=== PATIENT | female | born 1995 | race Caucasian/White ===

== ENCOUNTER 2018-09-23 22:55 | Outpatient (CLI) | payer MEDICAID ==
[2018-09-23 23:54] LABS: ADD UMIC YES; UR ASCORBIC ACID NEGATIVE (NEGATIVE); UR BACTERIA MODERATE /HPF (NONE SEEN); UR BILIRUBIN (Dip) NEGATIVE (NEGATIVE); UR BLOOD (Dip) NEGATIVE (NEGATIVE); UR CLARITY CLOUDY (CLEAR); UR COLOR STRAW (YELLOW); UR GLUCOSE (Dip) NEGATIVE (NEGATIVE); UR KETONES (Dip) NEGATIVE (NEGATIVE); UR LEUKOCYTE ESTERASE (Dip) 3+ Leu/ul (NEGATIVE); UR NITRITE (Dip) NEGATIVE (NEGATIVE); UR RBC 4 /HPF (0-5); UR SPECIFIC GRAVITY (Dip) 1.004 (1.003-1.030); UR SQUAMOUS EPITHELIAL CELL MODERATE /HPF (FEW); UR TOTAL PROTEIN (Dip) NEGATIVE (NEGATIVE); UR UROBILINOGEN (Dip) NEGATIVE (NEGATIVE); UR WBC 56 /HPF (0-5)
[2018-09-24] MEDS ORDERED: CEFTRIAXONE 1 GM INJ IM (02:00)
[2018-09-24] MEDS: SOD CHLORIDE 0.9% 1,000 ML IV (02:28)
[2018-09-24] MEDS: CEFTRIAXONE 1 GM/50 ML (PMX) 50 ML IVPB (02:35)
== END 2018-09-24 03:15 | disposition home or self-care (01) ==
LOC: OBT 22:55 → L-D 22:57 → OBT 09-24 03:15
DX: O62.9 Abnormality of forces of labor, unspecified (principal); Z3A.33 33 weeks gestation of pregnancy
CPT/HCPCS: 36415; 76817; 76818; 81001; 82731; 87086; 96365

== ENCOUNTER 2018-10-20 16:36 | Inpatient (IN) | payer MEDICAID ==
[2018-10-20] MEDS ORDERED: MISOPROSTOL 200 MCG TAB PR (18:30)
[2018-10-20] MEDS ORDERED: OXYCODONE/ASPIRIN (4.88/325) TAB PO (18:30)
[2018-10-20] MEDS ORDERED: LIDOCAINE 1% (MPF) 30 ML INJ INJ (18:30)
[2018-10-20] MEDS ORDERED: CARBOPROST 250 MCG INJ IM (18:30)
[2018-10-20] MEDS ORDERED: LABETALOL HCL 20MG INJ IV (18:30)
[2018-10-20] MEDS ORDERED: AMPICILLIN 2 GM/NS (PMX) 100 ML IV (18:30)
[2018-10-20] MEDS ORDERED: METHYLERGONOVINE 0.2 MG INJ IM (18:30)
[2018-10-20] MEDS ORDERED: BUTORPHANOL 2 MG INJ IV ×2 (18:30)
[2018-10-20] MEDS ORDERED: OXYTOCIN 30 UNITS/LR 500 ML IV ×2 (18:30)
[2018-10-20 18:37] LABS: ADD MAN DIFF? NO
[2018-10-20 18:41] LABS: BASOPHILS % 0.4 % (0.0-2.0); EOSINOPHILS # 0.1 10^3/ul (0.0-0.5); HEMATOCRIT 33.3 % (37.0-47.0); HEMOGLOBIN 11.2 g/dl (12.0-16.0); LYMPHOCYTES # 1.8 10^3/ul (0.8-2.9); LYMPHOCYTES % 19.5 % (15.0-51.0); MEAN CORPUSCULAR HEMOGLOBIN 29.8 pg (29.0-33.0); MEAN CORPUSCULAR HGB CONC 33.6 g/dl (32.0-37.0); MEAN CORPUSCULAR VOLUME 88.6 fl (82.0-101.0); MEAN PLATELET VOLUME 11.4 fl (7.4-10.4); MONOCYTE # 0.7 10^3/ul (0.3-0.9); MONOCYTES % 7.2 % (0.0-11.0); NEUTROPHIL # 6.5 10^3/ul (1.6-7.5); NEUTROPHILS % 71.4 % (39.0-77.0); PLATELET COUNT 207 10^3/UL (140-415); RED BLOOD COUNT 3.76 10^6/ul (4.20-5.40); RED CELL DISTRIBUTION WIDTH 12.9 % (11.5-14.5)
[2018-10-20 18:41] LABS: WHITE BLOOD COUNT 9.1 10^3/ul (4.8-10.8)
[2018-10-20 19:01] LABS: ALBUMIN 4.1 g/dl (3.3-4.9); ALBUMIN/GLOBULIN RATIO 1.13; ALKALINE PHOSPHATASE 358 IU/L (42-121); ANION GAP 9 (5-13); ASPARTATE AMINO TRANSFERASE 18 IU/L (15-46); BILIRUBIN,INDIRECT 0.4 mg/dl (0-1.1); BILIRUBIN,TOTAL 0.4 mg/dl (0.2-1.3); BLOOD UREA NITROGEN 11 mg/dl (7-20); CALCIUM 10.6 mg/dl (8.4-10.2); CARBON DIOXIDE 23 mmol/L (21-31); CHLORIDE 106 mmol/L (97-110); CREATININE 0.85 mg/dl (0.44-1.00); Estimated GFR > 60 mL/min (>60); GLUCOSE 69 mg/dl (70-220); POTASSIUM 3.6 mmol/L (3.5-5.1); SODIUM 138 mmol/L (135-144); TOTAL PROTEIN 7.7 g/dl (6.1-8.1)
[2018-10-20 19:02] LABS: URIC ACID 6.3 mg/dl (3.1-7.9)
[2018-10-20 19:04] LABS: ALANINE AMINOTRANSFERASE < 6 IU/L (13-69)
[2018-10-20 19:12] LABS: INR 0.84; PROTIME 11.6 Sec (11.9-14.9); PT RATIO 0.9
[2018-10-20 19:13] LABS: PARTIAL THROMBOPLASTIN TIME 25.8 Sec (23.0-35.0)
[2018-10-20 20:18] LABS: ADD UMIC YES; UR ASCORBIC ACID NEGATIVE (NEGATIVE); UR BACTERIA FEW /HPF (NONE SEEN); UR BILIRUBIN (Dip) NEGATIVE (NEGATIVE); UR BLOOD (Dip) 1+ mg/dL (NEGATIVE); UR CLARITY SLIGHTLY CLOUDY (CLEAR); UR COLOR STRAW (YELLOW); UR GLUCOSE (Dip) NEGATIVE (NEGATIVE); UR KETONES (Dip) NEGATIVE (NEGATIVE); UR LEUKOCYTE ESTERASE (Dip) 3+ Leu/ul (NEGATIVE); UR MUCUS FEW /HPF (NONE SEEN); UR NITRITE (Dip) NEGATIVE (NEGATIVE); UR RBC 11 /HPF (0-5); UR SPECIFIC GRAVITY (Dip) 1.004 (1.003-1.030); UR SQUAMOUS EPITHELIAL CELL FEW /HPF (FEW); UR TOTAL PROTEIN (Dip) NEGATIVE (NEGATIVE); UR UROBILINOGEN (Dip) NEGATIVE (NEGATIVE); UR WBC 32 /HPF (0-5)
[2018-10-20 20:20] LABS: RAPID PLASMA REAGIN NONREACTIVE (NR)
[2018-10-20] MEDS: LACTATED RINGER'S 1,000 ML IV (21:44)
[2018-10-20] MEDS: MISOPROSTOL 50 MCG CAPSULE PO (21:59)
[2018-10-20] MEDS ORDERED: AMPICILLIN 1 GM/NS (PMX) 50 ML IV (22:30)
[2018-10-21] MEDS: LACTATED RINGER'S 1,000 ML IV ×5 (02:13→13:31)
[2018-10-21] MEDS: MISOPROSTOL 50 MCG CAPSULE PO ×6 (03:10→21:00)
[2018-10-21] MEDS ORDERED: NALOXONE (0.4 MG/ML) INJ IV (08:00)
[2018-10-21] MEDS ORDERED: ONDANSETRON 4 MG INJ IV ×2 (08:00→14:30)
[2018-10-21] MEDS ORDERED: FENTAnyl 2MCG/ML-ROPIV 0.2% 100 ML BAG EPI (08:00)
[2018-10-21] MEDS ORDERED: DIPHENHYDRAMINE 50 MG INJ IV ×2 (08:00→14:30)
[2018-10-21 09:59] LABS: HEPATITIS B SURFACE ANTIGEN NEGATIVE (NEGATIVE)
[2018-10-21] MEDS: TERBUTALINE 1 MG/ML INJ SC ×2 (12:55→13:27)
[2018-10-21 14:24] LABS: CBV Base Excess -7.5 mmol/L; CBV COHb 0.8 %; CBV Oxygen Sat 49.7 mmHG; CBV Total Hemglobin 17.2 g/dl; Cord Blood Venous AADO2 73.4 mmHg; Cord Blood Venous pO2 22.4 mmHG (15.0-45.0); Fraction OxyHgb Cord Venous 48.5 %; MODE ROOM AIR; MetHgb Cord Venous 1.6 %; Sample Type CBV; Site CORD
[2018-10-21 14:25] LABS: Arterial Cord Blood pCO2 41.5 mmHG (25-50); CBA Base Excess -5.9 mmol/L; CBA COHb 0.7 %; CBA Oxygen Sat 42.7 mmHG; CBA Total Hemglobin 18.2 g/dl; Cord Blood Arterial pO2 19.2 mmHG (15.0-45.0); Fraction OxyHgb Cord Arterial 41.7 %; MODE ROOM AIR; MetHgb Cord Arterial 1.7 %; Sample Type CBA; Site CORD
[2018-10-21] MEDS ORDERED: ONDANSETRON 4 MG TAB PO (14:30)
[2018-10-21] MEDS ORDERED: CARBOPROST 250 MCG INJ IM (14:30)
[2018-10-21] MEDS ORDERED: DIPHENHYDRAMINE 25 MG CAP PO (14:30)
[2018-10-21] MEDS ORDERED: HYDROCODONE/APAP (5/325) TAB PO ×2 (14:30)
[2018-10-21] MEDS ORDERED: NA PHOSPHATE/BIPHOS 133 ML ENEMA PR (14:30)
[2018-10-21] MEDS ORDERED: MAGNESIUM HYDROXIDE 30ML CUP PO (14:30)
[2018-10-21] MEDS ORDERED: MISOPROSTOL 200 MCG TAB PR (14:30)
[2018-10-21] MEDS ORDERED: LABETALOL 200 MG TAB NGT (14:30)
[2018-10-21] MEDS ORDERED: SENNA/DOCUSATE NA (8.6MG/50MG) TAB PO (14:30)
[2018-10-21] MEDS: OXYTOCIN 30 UNITS/LR 500 ML IV ×2 (14:31→18:56)
[2018-10-21] MEDS: IBUPROFEN 600 MG TAB PO ×3 (14:32→23:31)
[2018-10-21] MEDS: WITCH HAZEL/GLYCERIN PAD PR (17:13)
[2018-10-21] MEDS: DIBUCAINE 1% 30 GM OINT TOP (17:13)
[2018-10-21] MEDS: LANOLIN HPA 1 PKT TOP (17:13)
[2018-10-21] MEDS: BENZOCAINE 20% 56 ML SPRAY TOP (17:13)
[2018-10-21] MEDS: LACTATED RINGER'S 1,000 ML IV* ×2 (18:57→22:13)
[2018-10-21] MEDS: SENNA/DOCUSATE NA (8.6MG/50MG) TAB PO (21:23)
[2018-10-22] MEDS: IBUPROFEN 600 MG TAB PO ×4 (06:06→23:44)
[2018-10-22] MEDS: LACTATED RINGER'S 1,000 ML IV* ×2 (06:13→14:13)
[2018-10-22 08:39] LABS: ADD MAN DIFF? NO
[2018-10-22 08:48] LABS: WHITE BLOOD COUNT 8.1 10^3/ul (4.8-10.8)
[2018-10-22 08:48] LABS: BASOPHILS % 0.4 % (0.0-2.0); EOSINOPHILS # 0.1 10^3/ul (0.0-0.5); EOSINOPHILS % 0.9 % (0.0-7.0); HEMATOCRIT 27.1 % (37.0-47.0); HEMOGLOBIN 8.9 g/dl (12.0-16.0); LYMPHOCYTES # 1.3 10^3/ul (0.8-2.9); LYMPHOCYTES % 15.6 % (15.0-51.0); MEAN CORPUSCULAR HEMOGLOBIN 29.5 pg (29.0-33.0); MEAN CORPUSCULAR HGB CONC 32.8 g/dl (32.0-37.0); MEAN CORPUSCULAR VOLUME 89.7 fl (82.0-101.0); MEAN PLATELET VOLUME 11.6 fl (7.4-10.4); MONOCYTE # 0.5 10^3/ul (0.3-0.9); MONOCYTES % 6.2 % (0.0-11.0); NEUTROPHIL # 6.2 10^3/ul (1.6-7.5); NEUTROPHILS % 76.5 % (39.0-77.0); PLATELET COUNT 162 10^3/UL (140-415); RED BLOOD COUNT 3.02 10^6/ul (4.20-5.40); RED CELL DISTRIBUTION WIDTH 13.2 % (11.5-14.5)
[2018-10-22] MEDS: SENNA/DOCUSATE NA (8.6MG/50MG) TAB PO ×2 (09:22→21:15)
[2018-10-23] MEDS: IBUPROFEN 600 MG TAB PO (05:49)
[2018-10-23] MEDS: SENNA/DOCUSATE NA (8.6MG/50MG) TAB PO (08:33)
[2018-10-23] MEDS ORDERED: VARICELLA VACCINE LIVE/PF 1,350 UNIT/0.5 ML ML SC* (09:00)
[2018-10-23] MEDS ORDERED: DIPHTH/TET/ACEL PERTUSS (ADULT) 0.5 ML VIAL IM* (09:00)
[2018-10-23] MEDS ORDERED: MEASLES,MUMPS,RUBELLA VACCINE INJ SC* (09:00)
== END 2018-10-23 12:20 | disposition home or self-care (01) | DRG 807 ==
LOC: OBT 16:36 → PP1 10-21 15:55 → L-D 16:36 → OBT 17:55 → L-D 17:55
PROC: 10E0XZZ Delivery of Products of Conception, External Approach (ICD-10-PCS; principal; 2018-10-21)
DX: O14.94 Unspecified pre-eclampsia, complicating childbirth (principal); Z37.0 Single live birth; Z3A.37 37 weeks gestation of pregnancy
CPT/HCPCS: 36415; 36600; 62322; 76815; 80053; 81001; 82803; 84560; 85025; 85610; 85730; 86592; 86850; 86900; 86901; 87340; 90716; 99464